=== PATIENT | male | born 1970 | race Hispanic/Latino ===

== ENCOUNTER 2022-07-19 06:27 | Emergency (ER) | payer OTHER ==
[~2022-07-19] VITALS: Ht 177.8 cm; Wt 83.9 kg
[2022-07-19 06:45] VITALS: BP 140/92
[2022-07-19] MEDS ORDERED: IBUPROFEN 400 MG TABLET ONE (06:57)
[2022-07-19] MEDS ORDERED: IBUPROFEN 200 MG TAB ONE (06:58)
[2022-07-19] MEDS ORDERED: IBUPROFEN 600 MG TABLET PO ONE (07:00)
[2022-07-19] MEDS ORDERED: CYCL-309 PO (07:49)
[2022-07-19] MEDS ORDERED: IBUP-2070 PO (07:49)
== END 2022-07-19 08:02 | disposition home or self-care (01) ==
LOC: EDH 06:27
DX: S29.012A Strain of muscle and tendon of back wall of thorax, initial encounter (principal); V59.9XXA Occupant (driver) (passenger) of pick-up truck or van injured in unspecified traffic accident, initial encounter; Y93.89 Activity, other specified; Y92.89 Other specified places as the place of occurrence of the external cause; Y99.8 Other external cause status
CPT/HCPCS: 73030